=== PATIENT | male | born 1950 | race Caucasian/White ===

== ENCOUNTER 2020-11-16 11:58 | Inpatient (IN) | payer MEDICARE ==
[~2020-11-16] VITALS: Ht 172.7 cm; Wt 84.0 kg
--- NOTE | 2020-11-16 12:11 | NUR ---
PATIENT WALKED BACK FROM TRIAGE WITH CHIEF C/O DIZZINESS X4 DAYS. PER PATIENT HE FELT NAUSEATED TUESDAY WHEN THE DIZZINESS STARTED AND "DRY HEAVED FOR 12 HOURS." PATIENT REPORTS NUMBNESS IN HIS LIPS AND TONGUE. DENIES NUMBNESS/TINGLING ANYWHERE ELSE. PATIENT DENIES SOB, DENIES CHEST PAIN, DENIES HEADACHES. PATIENT REPORTS DOUBLE VISION WELL, SYMPTOMS HAVE NOT IMPROVED. JOSE, CONNECTED TO MONITORS, AT BEDSIDE, CALL LIGHT WITHIN REACH. Addendum: 11/16/20 at 1219 by [email or web address] PATIENT USED SCOPALAMINE PATCH, WITH NO RELIEF.
--- NOTE | 2020-11-16 12:18 | NUR ---
ERPA AT BEDSIDE FOR EVALUATION.
[2020-11-16] MEDS ORDERED: MECLIZINE CHEWABLE 25 MG TAB PO ONE (12:30)
[2020-11-16] MEDS ORDERED: ONDANSETRON ODT 4 MG PO ONE (12:30)
--- NOTE | 2020-11-16 12:33 | NUR ---
Jon sheldon in [facility] - 11/16/20 at 1300 by [email or web address] Patient's mom given discharge instructions and they have confirmed that they understand the instructions, all questions answered. Patient stable and ambulatory with steady gait from ED to private vehicle with mom and dad and sister.
[2020-11-16] MEDS ORDERED: ONDANSETRON ODT 4 MG ONE (12:39)
[2020-11-16] MEDS ORDERED: MECLIZINE CHEWABLE 25 MG TAB ONE (12:39)
[2020-11-16 12:52] LABS: BASOPHILS % (AUTO) 0 % (0-1); EOSINOPHILS % (AUTO) 3 % (1-7); LYMPHOCYTES % (AUTO) 19 % (22-44); MEAN CORPUSCULAR HEMOGLOBIN 30.1 pg (27.5-34.5); MEAN CORPUSCULAR HGB CONC 33.3 g/dL (33.2-36.2); MEAN PLATELET VOLUME 7.6 fL (7.4-10.4); MONOCYTES % (AUTO) 11 % (2-9); NEUTROPHILS % (AUTO) 67 % (42-75); PLATELET COUNT 276 x10^3/uL (130-400); RED CELL DISTRIBUTION WIDTH 13.7 % (9.4-14.8)
[2020-11-16 13:00] LABS: MD NO
[2020-11-16 13:01] LABS: ALANINE AMINOTRANSFERASE 51 U/L (12-78); ALBUMIN 3.8 g/dL (3.4-5.0); ANION GAP 8 mmol/L (5-15); CALCIUM 8.9 mg/dL (8.5-10.1); CHLORIDE 107 mmol/L (98-107); CREATININE 1.12 mg/dL (0.7-1.3)
[2020-11-16 13:03] LABS: ALKALINE PHOSPHATASE 69 U/L (45-117); BILIRUBIN,TOTAL 0.4 mg/dL (0.2-1.0); TOTAL PROTEIN 7.4 g/dL (6.4-8.2)
--- NOTE | 2020-11-16 13:28 | NUR ---
REPORT RECEIVED FROM [facility] CALL. TONNY AT BEDSIDE FOR REASSESSMENT. PT REMAINS ON MONITORS, VSS. CONT TO MONITOR.
--- NOTE | 2020-11-16 13:56 | NUR ---
REPORT TO [facility] CALL.
[2020-11-16] MEDS ORDERED: SODIUM CHLORIDE FLUSH 10ML SYR IVF ONE (14:00)
--- NOTE | 2020-11-16 14:15 | NUR ---
MRI CHECK OFF FAXED TO MRI DEPT AND IV PLACED. PT RESTING IN BED WITH FAMILY AT PT SIDE. PT ON MONITOR WITH VSS.
[2020-11-16] MEDS ORDERED: GADOTERATE 10 MMOL/20ML SYR ONE (15:44)
[2020-11-16] MEDS ORDERED: ASPIRIN 81 MG TABLET CHEW ONE (16:26)
[2020-11-16] MEDS ORDERED: ASPIRIN 81 MG TABLET CHEW PO ONE (16:30)
[2020-11-16] MEDS ORDERED: SODIUM CHLORIDE FLUSH 10ML SYR IVF PRN (17:00)
[2020-11-16] MEDS ORDERED: ONDANSETRON 2MG/ML, 2ML IVPush PRN (17:30)
[2020-11-16] MEDS ORDERED: ONDANSETRON 4 MG TABLET PO PRN (17:30)
[2020-11-16] MEDS ORDERED: ENOXAPARIN 40 MG/0.4 ML SQ SCH (17:30)
[2020-11-16] MEDS: SODIUM CHLORIDE 0.9% 1,000 ML IV SCH (17:30)
[2020-11-16] MEDS ORDERED: ACETAMINOPHEN 650 MG/20.3 ML UDC PO PRN (17:30)
[2020-11-16 19:53] VITALS: BP 133/87
[2020-11-16] MEDS ORDERED: OMNIPAQUE 350 MG/ML, 100ML BOTTLE ONE (20:00)
[2020-11-16] MEDS ORDERED: ATORVASTATIN 40 MG TABLET PO SCH (21:00)
[2020-11-17 00:59] VITALS: BP 125/78
[2020-11-17] MEDS: SODIUM CHLORIDE 0.9% 1,000 ML IV SCH ×2 (05:57→13:30)
[2020-11-17 06:11] LABS: ALBUMIN 3.7 g/dL (3.4-5.0); CALCIUM 8.6 mg/dL (8.5-10.1); CHLORIDE 108 mmol/L (98-107)
[2020-11-17 06:12] LABS: BASOPHILS % (AUTO) 1 % (0-1); EOSINOPHILS % (AUTO) 6 % (1-7); LYMPHOCYTES % (AUTO) 30 % (22-44); MEAN CORPUSCULAR HEMOGLOBIN 30.2 pg (27.5-34.5); MEAN CORPUSCULAR HGB CONC 33.2 g/dL (33.2-36.2); MEAN PLATELET VOLUME 8.1 fL (7.4-10.4); MONOCYTES % (AUTO) 11 % (2-9); NEUTROPHILS % (AUTO) 53 % (42-75); PLATELET COUNT 258 x10^3/uL (130-400); RED BLOOD COUNT 4.86 x10^6/uL (4.38-5.82); RED CELL DISTRIBUTION WIDTH 13.9 % (9.4-14.8)
[2020-11-17 06:16] LABS: ALANINE AMINOTRANSFERASE 42 U/L (12-78); ALKALINE PHOSPHATASE 70 U/L (45-117); ANION GAP 6 mmol/L (5-15); BILIRUBIN,TOTAL 0.7 mg/dL (0.2-1.0); CHOL/HDL RATIO 4.8; CHOLESTEROL, TOTAL 187 mg/dL (140-239); CREATININE 1.01 mg/dL (0.7-1.3); HDL CHOL % 21 % (26-37); HDL CHOLESTEROL (DIRECT) 39 mg/dL (40-60); LDL CHOLESTEROL,CALCULATED 116 mg/dL (54-169); TOTAL PROTEIN 7.1 g/dL (6.4-8.2); TRIGLYCERIDES 160 mg/dL (50-200); VLDL CHOLESTEROL 32 mg/dL (0-25)
[2020-11-17 06:33] LABS: MD NO
[2020-11-17 06:44] VITALS: BP 164/98
[2020-11-17] MEDS ORDERED: ASPIRIN 81 MG TABLET CHEW PO/NG SCH (09:00)
[2020-11-17] MEDS ORDERED: ATOR40TA78 PO (10:04)
[2020-11-17] MEDS ORDERED: ASPI-963 PO (10:04)
[2020-11-17] MEDS ORDERED: LISI-170 PO (10:04)
[2020-11-17] MEDS ORDERED: CLOP75TA PO (10:04)
[2020-11-17] MEDS ORDERED: LISINOPRIL 20 MG TABLET PO ONE (10:30)
[2020-11-17 12:15] VITALS: BP 143/87
[2020-11-18] MEDS ORDERED: CLOPIDOGREL 75 MG TABLET PO SCH (09:00)
[2020-11-18] MEDS ORDERED: ASPIRIN 81 MG TABLET CHEW PO SCH (09:00)
== END 2020-11-17 15:30 | disposition home or self-care (01) | DRG 66 ==
LOC: ED 12:33 → EDIP 16:42 → 4WST 17:21 → DCLOUNGE 11-17 15:16
PROVIDERS: ADMIT Hospitalist; ATTEND Hospitalist
DX: I63.40 Cerebral infarction due to embolism of unspecified cerebral artery (principal); H53.2 Diplopia; D72.829 Elevated white blood cell count, unspecified; E66.9 Obesity, unspecified; E78.5 Hyperlipidemia, unspecified; I11.9 Hypertensive heart disease without heart failure; Z68.28 Body mass index [BMI] 28.0-28.9, adult; Z74.01 Bed confinement status; Z79.899 Other long term (current) drug therapy; Z80.0 Family history of malignant neoplasm of digestive organs; Z82.49 Family history of ischemic heart disease and other diseases of the circulatory system; Z87.442 Personal history of urinary calculi; Z88.5 Allergy status to narcotic agent; Z90.49 Acquired absence of other specified parts of digestive tract; Z79.82 Long term (current) use of aspirin; R73.9 Hyperglycemia, unspecified
CPT/HCPCS: 36415; 70450; 70496; 70498; 70553; 80053; 80061; 83036; 85025; 93005; 93306; 99285; G0378; J1650; Q0162; Q9967; A9575; J7030